=== PATIENT | female | born 1990 | race African-American/Black ===

== ENCOUNTER 2016-09-01 07:45 | Emergency (ER) | payer MEDICAID ==
[~2016-09-01] VITALS: Ht 160 cm; Wt 82.0 kg
[2016-09-01 07:47] VITALS: BP 134/74; PULSE 74; RESP 15; TEMP 98; O2SAT 100
[2016-09-01] MEDS ORDERED: IBUP800T23 PO (08:11)
[2016-09-01] MEDS ORDERED: CEPH-460 PO (08:11)
[2016-09-01] MEDS ORDERED: BACT800T5 PO (08:11)
--- NOTE | 2016-09-01 08:13 | PD ---
HPI Chief Complaint: Skin Problem Time Seen by Provider: 08:09 Travel History International Travel<30 days: No Contact w/Intl Traveler<30days: No Traveled to known affect area: No History of Present Illness HPI 26-year-old female presents to the emergency Department with complaint of "risens" under her right and left breast and to her sternum area. Right breast abscess started about a week ago and has already drained and is healing. The left breast abscess is draining purulent drainage. The abscess to the sternal area just started yesterday. Says she has been getting the abscess to these areas on and off for the past couple months. She has not taken any medications or tried any treatments to alleviate her symptoms. Denies fever, vomiting. Has no other medical complaints. Unknown tetanus status. No known allergies. No other modifying factors or associated signs and symptoms. PFSH Past Medical History Diminished Hearing: No Immunizations Current: Yes ?: Not LMP: 3 weeks ago : 1 Para: 1 : 1 Tubal Ligation: Yes Social History Alcohol Use: Yes Tobacco Use: Yes (5 cig/day) Substance Use: No Allergies-Medications (Allergen,Severity, Reaction): Coded Allergies: No Known Allergies (Verified , 02/09/16) Reported Meds & Prescriptions Reported Meds & Active Scripts Active Ibuprofen 800 Mg Tab 800 Mg PO Q6HR PRN Keflex (Cephalexin) 500 Mg Cap 500 Mg PO Q6H 10 Days Bactrim DS (Sulfamethoxazole-Trimethoprim) 800-160 Mg Tab 1 Tab PO BID 10 Days Review of Systems Except as stated in HPI: all other systems reviewed are Neg Physical Exam Narrative GENERAL: Well-nourished, well-developed female patient, in no acute distress; afebrile, nontoxic-appearing SKIN: There is an indurated area to the lower, medial fold of the left breast which measures about 2 cm in diameter. It is fluctuant and draining purulent drainage. There is non-fluctuant area to the medial fold of the right breast which measures about 1 cm in diameter and appears to be healing; without drainage. There is an indurated area to the skin of the mid sternum that is nonfluctuant and hard on palpation; with minimal tenderness and without erythema or surrounding zone of inflammation. There is a zone of inflammation noted to the lower. The left breast around the area of the abscess but no lymphangitis. HEAD: Atraumatic. Normocephalic. EYES: Pupils equal and round. No scleral icterus. No injection or drainage. ENT: Mucosa pink and moist. Airway patent. NECK: Trachea midline. CARDIOVASCULAR: Regular rate. RESPIRATORY: No accessory muscle use. GASTROINTESTINAL: Rounded. MUSCULOSKELETAL: No obvious deformities. No clubbing. No cyanosis. No edema. NEUROLOGICAL: Awake and alert. Oriented 3. No obvious cranial nerve deficits. Motor grossly within normal limits. Normal speech. PSYCHIATRIC: Appropriate mood and affect; insight and judgment normal. Data Data Last Documented VS Vital Signs Date Time Temp Pulse Resp B/P Pulse Ox O2 Delivery O2 Flow Rate FiO2 09/01/16 07:47 98.0 74 15 134/74 100 MDM Medical Decision Making Medical Screen Exam Complete: Yes Emergency Medical Condition: Yes Medical Record Reviewed: Yes Differential Diagnosis Abscesses, folliculitis, cellulitis Narrative Course 26-year-old female with multiple abscesses. One to the under fold of the right breast that has already drained and is nonfluctuant and without erythema or edema. One to the under fold of the left breast that is draining purulent drainage and rhythm area of erythema; without lymphangitis. One to the skin of the mid sternum that is nonfluctuant and without erythema, pointing, drainage, lymphangitis. Patient is afebrile and nontoxic-appearing. She denies fever, vomiting. Wound culture pending. Tetanus updated in the ER. Ibuprofen administered in the ER. Keflex, Bactrim, ibuprofen prescribed for home. Patient verbalizes understanding and agreement with treatment plan. Patient is medically cleared and stable for discharge. Discussed reasons to return to the emergency department. Instructed patient to follow up with primary care provider. Patient agrees with treatment plan. The patients vital signs are stable and the patient is stable for outpatient follow-up and treatment. Patient discharged home, stable and in no acute distress. Diagnosis Primary Impression: Abscess of multiple sites Referrals: [facility] Primary Care Physician Patient Instructions: Abscess (ED), Abscess Follow-up (ED), General Instructions Departure Forms: Tests/Procedures, Work Release Enter return to work date: Sep 02, 2016 Additional Instructions: Complete full course of antibiotics Warm compresses to the affected area Keep area clean and dry Ibuprofen or Tylenol as directed and as needed for pain and inflammation Follow-up with primary care provider Return to emergency department immediately with worsening of symptoms Med/Other Pt SpecificInfo: Prescription(s) given Scripts Ibuprofen 800 Mg [id number] Mg PO Q6HR PRN (PAIN) #30 TAB Ref 0 Prov:Zohra Villalpando 09/01/16 Cephalexin (Keflex)500 Mg [id number] Mg PO Q6H 10 Days Ref 0 Prov:Zohra Villalpando 09/01/16 Sulfamethoxazole-Trimethoprim (Bactrim DS)800-160 Mg Tab1 Tab PO BID 10 Days Ref 0 Prov:Zohra Villalpando 09/01/16 Disposition: 01 DISCHARGE HOME Condition: Stable Zohra Villalpando Sep 01, 2016 08:13
[2016-09-01] MEDS ORDERED: IBUPROFEN 800 MG TAB PO ONE (08:15)
[2016-09-01] MEDS ORDERED: TETANUS/DIPHTHERIA TOXOID ADULT 0.5 ML VIAL IM ONE (08:15)
== END 2016-09-01 08:20 | disposition home or self-care (01) ==
LOC: NEPD 07:45
DX: N61.1 Abscess of the breast and nipple (principal); L02.213 Cutaneous abscess of chest wall; F17.210 Nicotine dependence, cigarettes, uncomplicated; Z23 Encounter for immunization
CPT/HCPCS: 86403; 87070; 87077; 87186; 90714; 99284

== ENCOUNTER 2017-05-07 04:10 | Emergency (ER) | payer MEDICAID ==
[~2017-05-07] VITALS: Ht 157.5 cm; Wt 68.0 kg
[~2017-05-07 04:10] MED LIST: BACT800T5 PO
[2017-05-07 04:31] VITALS: BP 119/78; PULSE 106; RESP 16; TEMP 100.5; O2SAT 100
[2017-05-07] MEDS ORDERED: KETOROLAC TROMETHAMINE 30 MG/ML (IVP) VIAL IVP ONE (06:00)
[2017-05-07] MEDS ORDERED: ACETAMINOPHEN 325 MG TAB PO ONE (06:00)
[2017-05-07] MEDS ORDERED: SODIUM CHLORIDE 0.9% FLUSH 10 ML FLUSH IV FLUSH PRN (06:00)
[2017-05-07 06:28] VITALS: O2SAT 100
[2017-05-07 06:45] LABS: AUTOMATED NEUTROPHIL # 7.7 TH/MM3 (1.8-7.7); BASOPHIL # 0.1 TH/MM3 (0-0.2); BASOPHIL % 0.5 % (0.0-2.0); EOSINOPHIL # 0.1 TH/MM3 (0-0.4); HEMATOCRIT 32.5 % (35.0-46.0); HEMOGLOBIN 10.8 GM/DL (11.6-15.3); LYMPH % 21.5 % (9.0-44.0); LYMPHOCYTE # 2.3 TH/MM3 (1.0-4.8); MEAN CELL VOLUME 80.3 FL (80.0-100.0); MEAN CORPUSCULAR HEMOGLOBIN 26.8 PG (27.0-34.0); MEAN CORPUSCULAR HGB CONC 33.4 % (32.0-36.0); MEAN PLATELET VOLUME 8.1 FL (7.0-11.0); MONO % 5.3 % (0.0-8.0); MONOCYTE # 0.6 TH/MM3 (0-0.9); NEUT % 71.7 % (16.0-70.0); PLATELET COUNT 256 TH/MM3 (150-450); RED BLOOD COUNT 4.05 MIL/MM3 (4.00-5.30); RED CELL DISTRIBUTION WIDTH 16.9 % (11.6-17.2); WHITE BLOOD COUNT 10.8 TH/MM3 (4.0-11.0)
[2017-05-07 06:57] LABS: ALBUMIN 3.3 GM/DL (3.4-5.0); AST (GOT) 16 U/L (15-37); BICARBONATE 25.3 MEQ/L (21.0-32.0); BLOOD UREA NITROGEN 8 MG/DL (7-18); CALCIUM 8.1 MG/DL (8.5-10.1); CHLORIDE 106 MEQ/L (98-107); CREATININE 0.75 MG/DL (0.50-1.00); GLOMERULAR FILTRATION RATE 111 ML/MIN (>89); GLUCOSE,RANDOM 89 MG/DL (74-106); SODIUM (NA) 137 MEQ/L (136-145)
[2017-05-07 07:00] LABS: ALKALINE PHOSPHATASE 75 U/L (45-117); ALT (GPT) 15 U/L (10-53); TOTAL BILIRUBIN ADULT 0.4 MG/DL (0.2-1.0); TOTAL PROTEIN 7.4 GM/DL (6.4-8.2)
[2017-05-07] MEDS ORDERED: IOHEXOL 350 MG/ML 10 ML VIAL (for RAD DIAG) IVCONTRAST ONE (07:29)
--- NOTE | 2017-05-07 07:37 | PD ---
HPI Chief Complaint: Abdominal Pain Time Seen by Provider: 05:56 Travel History International Travel<30 days: No Contact w/Intl Traveler<30days: No Traveled to known affect area: No History of Present Illness HPI 27-year-old female presents to the emergency department by private transportation for evaluation of left lower quadrant abdominal pain with nausea and vomiting. Patient states last bowel movement was earlier in the day. Patient denies constipation but states she feels as if she is constipated. The dysuria frequency or urgency. Patient has had subjective fever and chills. Patient denies she is currently menstruating and status post tubal ligation. Patient denies other concerns or complaints. Patient denies any respiratory illness symptoms. The patient rates her pain 10/10 in intensity. PFSH Past Medical History Narrative Medical Tubal ligation; tobacco use alcohol use; nursing notes reviewed Diminished Hearing: No Immunizations Current: Yes Tetanus Vaccination: < 5 Years Influenza Vaccination: Yes ?: Not LMP: 05/06/17 : 3 Para: 3 : 1 Tubal Ligation: Yes Social History Alcohol Use: Yes Tobacco Use: Yes (5 cig/day) Substance Use: No Allergies-Medications (Allergen,Severity, Reaction): Coded Allergies: No Known Allergies (Verified Adverse Reaction, Unknown, 05/07/17) Reported Meds & Prescriptions Reported Meds & Active Scripts Active No Active Prescriptions or Reported Medications Review of Systems Except as stated in HPI: all other systems reviewed are Neg General / Constitutional: Positive: Fever, Chills HENT: No: Congestion Cardiovascular: No: Chest Pain or Discomfort Respiratory: No: Shortness of Breath Gastrointestinal: Positive: Nausea, Vomiting, Abdominal Pain (Left lower quadrant) Genitourinary: No: Dysuria Musculoskeletal: No: Myalgias, Arthralgias Skin: No Rash Neurologic: No: Weakness Psychiatric: No: Anxiety Hematologic/Lymphatic: No: Lymph Node Enlargement Physical Exam Narrative GENERAL: Well-developed well-nourished female no acute distress or respiratory distress SKIN: Warm and dry. HEAD: Normocephalic. EYES: No scleral icterus. No injection or drainage. NECK: Supple, trachea midline. No JVD or lymphadenopathy. CARDIOVASCULAR: Regular rate and rhythm without murmurs, gallops, or rubs. RESPIRATORY: Breath sounds equal bilaterally. No accessory muscle use. GASTROINTESTINAL: Abdomen soft, LLQ tenderness, nondistended. MUSCULOSKELETAL: No cyanosis, or edema. BACK: Nontender without obvious deformity. No CVA tenderness. Data Data Last Documented VS Vital Signs Date Time Temp Pulse Resp B/P (MAP) Pulse Ox O2 Delivery O2 Flow Rate FiO2 05/07/17 06:28 100 Room Air 05/07/17 05:25 18 05/07/17 04:31 100.5 106 119/78 (92) Orders Orders Complete Blood Count With Diff (05/07/17 05:56) Comprehensive Metabolic Panel (05/07/17 05:56) Lipase (05/07/17 05:56) Urinalysis - C+S If Indicated (05/07/17 05:56) Ct Abd/Pel W Iv Contrast(Rout) (05/07/17 05:56) Iv Access Insert/Monitor (05/07/17 05:56) Ecg Monitoring (05/07/17 05:56) Oximetry (05/07/17 05:56) Sodium Chloride 0.9% Flush (Ns Flush) (05/07/17 06:00) Ketorolac Inj (Toradol Inj) (05/07/17 06:00) Ed Urine Pregnancytest Poc (05/07/17 05:56) Acetaminophen (Tylenol) (05/07/17 06:00) Iohexol 350 Inj (Omnipaque 350 Inj) (05/07/17 07:29) Labs Laboratory Tests Test 05/07/17 06:13 05/07/17 06:23 White Blood Count 10.8 TH/MM3 Red Blood Count 4.05 MIL/MM3 Hemoglobin 10.8 GM/DL Hematocrit 32.5 % Mean Corpuscular Volume 80.3 FL Mean Corpuscular Hemoglobin 26.8 PG Mean Corpuscular Hemoglobin Concent 33.4 % Red Cell Distribution Width 16.9 % Platelet Count 256 TH/MM3 Mean Platelet Volume 8.1 FL Neutrophils (%) (Auto) 71.7 % Lymphocytes (%) (Auto) 21.5 % Monocytes (%) (Auto) 5.3 % Eosinophils (%) (Auto) 1.0 % Basophils (%) (Auto) 0.5 % Neutrophils # (Auto) 7.7 TH/MM3 Lymphocytes # (Auto) 2.3 TH/MM3 Monocytes # (Auto) 0.6 TH/MM3 Eosinophils # (Auto) 0.1 TH/MM3 Basophils # (Auto) 0.1 TH/MM3 CBC Comment DIFF FINAL Differential Comment Blood Urea Nitrogen 8 MG/DL Creatinine 0.75 MG/DL Random Glucose 89 MG/DL Total Protein 7.4 GM/DL Albumin 3.3 GM/DL Calcium Level 8.1 MG/DL Alkaline Phosphatase 75 U/L Aspartate Amino Transf (AST/SGOT) 16 U/L Alanine Aminotransferase (ALT/SGPT) 15 U/L Total Bilirubin 0.4 MG/DL Sodium Level 137 MEQ/L Potassium Level 3.8 MEQ/L Chloride Level 106 MEQ/L Carbon Dioxide Level 25.3 MEQ/L Anion Gap 6 MEQ/L Estimat Glomerular Filtration Rate 111 ML/MIN Lipase 64 U/L MDM Medical Decision Making Medical Screen Exam Complete: Yes Emergency Medical Condition: Yes Medical Record Reviewed: Yes Interpretation(s) CBC & BMP Diagram 05/07/17 06:13 05/07/17 06:23 Total Protein 7.4, Albumin 3.3 L, Calcium Level 8.1 L, Alkaline Phosphatase 75, Aspartate Amino Transf (AST/SGOT) 16, Alanine Aminotransferase (ALT/SGPT) 15, Total Bilirubin 0.4 Vital Signs Date Time Temp Pulse Resp B/P (MAP) Pulse Ox O2 Delivery O2 Flow Rate FiO2 05/07/17 06:28 100 Room Air 05/07/17 05:25 18 05/07/17 04:31 100.5 106 16 119/78 (92) 100 Vital Signs Date Time Temp Pulse Resp B/P (MAP) Pulse Ox O2 Delivery O2 Flow Rate FiO2 05/07/17 06:28 100 Room Air 05/07/17 05:25 18 05/07/17 04:31 100.5 106 16 119/78 (92) 100 Differential Diagnosis Left lower quadrant abdominal pain, ectopic , atypical appendicitis, diverticulitis, colitis, UTI, pyelonephritis, renal colic with obstructive uropathy, PID Narrative Course IV access obtained specimens collected and sent for resulting CT abdomen pelvis ordered [id number] hCG is negative Patient's care signed over oncoming physician Dr. Drake Scripts No Active Prescriptions or Reported Meds Gabriela Vann MD May 07, 2017 07:37
--- NOTE | 2017-05-07 07:40 | PD ---
Physical Exam Narrative Patient was seen by ED physician and signed out to me. Data Data Last Documented VS Vital Signs Date Time Temp Pulse Resp B/P (MAP) Pulse Ox O2 Delivery O2 Flow Rate FiO2 05/07/17 06:28 100 Room Air 05/07/17 05:25 18 05/07/17 04:31 100.5 106 119/78 (92) Orders Orders Complete Blood Count With Diff (05/07/17 05:56) Comprehensive Metabolic Panel (05/07/17 05:56) Lipase (05/07/17 05:56) Urinalysis - C+S If Indicated (05/07/17 05:56) Ct Abd/Pel W Iv Contrast(Rout) (05/07/17 05:56) Iv Access Insert/Monitor (05/07/17 05:56) Ecg Monitoring (05/07/17 05:56) Oximetry (05/07/17 05:56) Sodium Chloride 0.9% Flush (Ns Flush) (05/07/17 06:00) Ketorolac Inj (Toradol Inj) (05/07/17 06:00) Ed Urine Pregnancytest Poc (05/07/17 05:56) Acetaminophen (Tylenol) (05/07/17 06:00) Iohexol 350 Inj (Omnipaque 350 Inj) (05/07/17 07:29) Labs Laboratory Tests Test 05/07/17 06:13 05/07/17 06:23 White Blood Count 10.8 TH/MM3 Red Blood Count 4.05 MIL/MM3 Hemoglobin 10.8 GM/DL Hematocrit 32.5 % Mean Corpuscular Volume 80.3 FL Mean Corpuscular Hemoglobin 26.8 PG Mean Corpuscular Hemoglobin Concent 33.4 % Red Cell Distribution Width 16.9 % Platelet Count 256 TH/MM3 Mean Platelet Volume 8.1 FL Neutrophils (%) (Auto) 71.7 % Lymphocytes (%) (Auto) 21.5 % Monocytes (%) (Auto) 5.3 % Eosinophils (%) (Auto) 1.0 % Basophils (%) (Auto) 0.5 % Neutrophils # (Auto) 7.7 TH/MM3 Lymphocytes # (Auto) 2.3 TH/MM3 Monocytes # (Auto) 0.6 TH/MM3 Eosinophils # (Auto) 0.1 TH/MM3 Basophils # (Auto) 0.1 TH/MM3 CBC Comment DIFF FINAL Differential Comment Blood Urea Nitrogen 8 MG/DL Creatinine 0.75 MG/DL Random Glucose 89 MG/DL Total Protein 7.4 GM/DL Albumin 3.3 GM/DL Calcium Level 8.1 MG/DL Alkaline Phosphatase 75 U/L Aspartate Amino Transf (AST/SGOT) 16 U/L Alanine Aminotransferase (ALT/SGPT) 15 U/L Total Bilirubin 0.4 MG/DL Sodium Level 137 MEQ/L Potassium Level 3.8 MEQ/L Chloride Level 106 MEQ/L Carbon Dioxide Level 25.3 MEQ/L Anion Gap 6 MEQ/L Estimat Glomerular Filtration Rate 111 ML/MIN Lipase 64 U/L MDM Supervised Visit with TOMMY: No Interpretation(s) 7:39 AM. CBC with WBC 10.8. Hemoglobin 10.8 hematocrit 32.5. 71 neutrophil. CMP within normal limits. Narrative Course 27-year-old female with left lower quadrant abdominal pain. Patient was seen by ED physician and signed out to me. Diagnosis Primary Impression: Abdominal pain Qualified Codes: R10.32 - Left lower quadrant pain Additional Impression: Gastroenteritis Patient Instructions: General Instructions Additional Instruction: Bentyl as needed for abdominal pain. Clear fluids today and advance diet as tolerated. Follow-up with personal physician. Return to persistent abdominal pain, fever, vomiting or worse. Med/Other Pt SpecificInfo: Prescription(s) given Scripts Dicyclomine (Bentyl) 10 Mg Cap 10 MG PO TID Y for Bowel Management, #15 CAP 0 Refills Prov: Cole Drake MD 05/07/17 Disposition: 01 DISCHARGE HOME Condition: Stable Cole Drake MD May 07, 2017 07:40
--- NOTE | 2017-05-07 07:47 | RADRPT ---
EXAM DATE/TIME: 05/07/2017 07:24 [facility] COMPARISON: No previous studies available for comparison. INDICATIONS : Abdominal pain and vomiting IV CONTRAST: 95 cc Omnipaque 350 (iohexol) IV ORAL CONTRAST: No oral contrast ingested. RADIATION DOSE: 8.01 CTDIvol (mGy) MEDICAL HISTORY : None SURGICAL HISTORY : Tubal ligation. ENCOUNTER: Initial ACUITY: 1 day PAIN SCALE: 5/10 LOCATION: diffuse abdomen TECHNIQUE: Volumetric scanning of the abdomen and pelvis was performed. Using automated exposure control and ad justment of the mA and/or kV according to patient size, radiation dose was kept as low as reasonably achievable to obtain optimal diagnostic quality images. DICOM format image data is available electro nically for review and comparison. FINDINGS: LOWER LUNGS: The visualized lower lungs are clear. LIVER: Homogeneous density without lesion. There is no dilation of the biliary tree. No calcified gallston es. The gallbladder is unremarkable in appearance. SPLEEN: Normal size without lesion. PANCREAS: Within normal limits. KIDNEYS: Normal in size and shape. There is no mass, stone or hydronephrosis. ADRENAL GLANDS: Within normal limits. VASCULAR: There is no aortic aneurysm. BOWEL/MESENTERY: No oral contrast was given limiting the sensitivity of the exam. There is a normal appendix. The stom ach and colon appear unremarkable. There are several loops of nondilated air-containing small bowel s everal small air-fluid levels. There is no free intraperitoneal air. There are multiple small punctat e areas of calcification are located in the distal small bowel. ABDOMINAL WALL: Within normal limits. RETROPERITONEUM: There is no lymphadenopathy. BLADDER: No wall thickening or mass. REPRODUCTIVE: The uterus and adnexa appear unremarkable. There is free fluid in the cul-de-sac which could be physi ologic for a patient this age.. INGUINAL: There is no lymphadenopathy or hernia. MUSCULOSKELETAL: Within normal limits for patient age. CONCLUSION: 1. Nonspecific, nonobstructive bowel gas pattern which may represent a mild ileus and/or gastroenteri tis. No oral contrast was given limiting sensitivity. 2. There is normal appendix. 3. Unremarkable gallbladder. 4. Multiple punctate areas of calcification are located in the distal small bowel. This likely repres ents ingested food material. 5. Free fluid in the cul-de-sac which can be physiologic in a female patient of this age. Troy Pagan MD on May 07, 2017 at 7:42 Board Certified Radiologist. This report was verified electronically.
[2017-05-07] MEDS ORDERED: DICY10 PO (08:01)
[2017-05-07 08:05] VITALS: BP 124/85; PULSE 85; RESP 16; TEMP 98.5; O2SAT 98
[2017-05-07 08:56] LABS: BACTERIA, URINE RARE /hpf; BILIRUBIN, URINE NEG (NEG); BLOOD, URINE MOD (NEG); GLUCOSE,URINE NEG (NEG); KETONE, URINE NEG (NEG); NITRITE,URINE NEG (NEG); PH, URINE 5.5 (5.0-8.5); SQUAMOUS EPITHELIAL CELL URINE 1 /hpf (0-5); URINE COLOR YELLOW (YELLW/STRAW); URINE LEUKOCYTE ESTERASE NEG (NEG)
== END 2017-05-07 09:07 | disposition home or self-care (01) ==
LOC: NEPC 04:10
DX: K52.9 Noninfective gastroenteritis and colitis, unspecified (principal); F17.210 Nicotine dependence, cigarettes, uncomplicated
CPT/HCPCS: 74177; 80053; 81001; 83690; 84703; 85025; 96374; 99284; J1885; Q9967

== ENCOUNTER 2017-07-20 17:25 | Emergency (ER) | payer MEDICAID ==
[~2017-07-20 17:25] MED LIST changes: -BACT800T5 PO; +DICY10 PO
[2017-07-20 17:37] VITALS: BP 130/84; PULSE 100; RESP 18; TEMP 99.1; O2SAT 100
--- NOTE | 2017-07-20 17:56 | PD ---
HPI Chief Complaint: Cold / Flu Symptoms Time Seen by Provider: 17:55 Travel History International Travel<30 days: No Contact w/Intl Traveler<30days: No Traveled to known affect area: No History of Present Illness HPI 27-year-old female came to the emergency room with history of nausea and vomiting since this morning. Patient says she woke up and was nauseous. Since then she has vomited 3 times. She also felt fever and chills and took Tylenol about 5 hours ago. Patient says that her last vomit was couple hours ago but she continues to feel nauseous. Patient's bedside urine is negative. She is currently having her menstrual cycle she said. There is a positive sick contact history. She was in contact with her 1-year-old nephew who had the same symptoms couple days ago. No history of dysuria. She is otherwise a healthy person. Vital signs were suggestive of a temperature of 99.5 in triage. Otherwise relatively normal. PFSH Past Medical History Narrative Medical List of her past medical, surgical, social and family history is reviewed from the nursing note Diminished Hearing: No Immunizations Current: Yes : 3 Para: 3 : 1 Tubal Ligation: Yes Social History Alcohol Use: Yes Tobacco Use: Yes (5 cig/day) Substance Use: No Allergies-Medications (Allergen,Severity, Reaction): Coded Allergies: No Known Allergies (Verified Adverse Reaction, Unknown, 07/20/17) Comments No known drug allergies. Reported Meds & Prescriptions Reported Meds & Active Scripts Active Bentyl (Dicyclomine HCl) 10 Mg Cap 10 Mg PO TID PRN Narrative Medication List of her home medications reviewed from the nursing note. Review of Systems Except as stated in HPI: all other systems reviewed are Neg General / Constitutional: Positive: Fever Gastrointestinal: Positive: Nausea, Vomiting Physical Exam Narrative GENERAL: Awake, alert, mild distress SKIN: Focused skin assessment warm/dry. HEAD: Atraumatic. Normocephalic. EYES: Pupils equal and round. No scleral icterus. No injection or drainage. ENT: No nasal bleeding or discharge. Mucous membranes pink and moist. NECK: Trachea midline. No JVD. CARDIOVASCULAR: Regular rate and rhythm. No murmur appreciated. RESPIRATORY: No accessory muscle use. Clear to auscultation. Breath sounds equal bilaterally. GASTROINTESTINAL: Abdomen soft, non-tender, nondistended. Hepatic and splenic margins not palpable. MUSCULOSKELETAL: No obvious deformities. No clubbing. No cyanosis. No edema. NEUROLOGICAL: Awake and alert. No obvious cranial nerve deficits. Motor grossly within normal limits. Normal speech. PSYCHIATRIC: Appropriate mood and affect; insight and judgment normal. Data Data Last Documented VS Vital Signs Date Time Temp Pulse Resp B/P (MAP) Pulse Ox O2 Delivery O2 Flow Rate FiO2 07/20/17 18:51 76 18 134/75 (94) 98 Room Air 07/20/17 17:37 99.1 Orders Orders Influenzae A/B Antigen (07/20/17 17:40) Ed Urine Pregnancytest Poc (07/20/17 17:40) Urinalysis - C+S If Indicated (07/20/17 18:13) Ondansetron Odt (Zofran Odt) (07/20/17 18:15) Urine Culture (07/20/17 18:15) Ed Discharge Order (07/20/17 19:07) Labs Laboratory Tests Test 07/20/17 18:15 Urine Color YELLOW Urine Turbidity HAZY Urine pH 6.0 Urine Specific [place] 1.026 Urine Protein TRACE mg/dL Urine Glucose (UA) NEG mg/dL Urine Ketones NEG mg/dL Urine Occult Blood MOD Urine Nitrite NEG Urine Bilirubin NEG Urine Urobilinogen 2.0 MG/DL Urine Leukocyte Esterase NEG Urine RBC /hpf Urine WBC 9 /hpf Urine Squamous Epithelial Cells 4 /hpf Urine Bacteria OCC /hpf Urine Mucus FEW /lpf Microscopic Urinalysis Comment CULTURE INDICATED MDM Medical Decision Making Medical Screen Exam Complete: Yes Emergency Medical Condition: Yes Medical Record Reviewed: Yes Differential Diagnosis Viral illness, UTI, influenza Narrative Course 7:11 PM influenza is negative. UA shows RBCs probably from her menstrual cycle. There are a few white blood cell but not enough to convince me to go ahead and treat her. I would rather wait for the urine culture. Patient was given p.o. Zofran and she is feeling better. I am comfortable discharging her home with prescription. Diagnosis Primary Impression: Viral illness Additional Impression: Nausea Additional Instructions: Take the medication as per the prescription direction. Drink lots of fluid to stay hydrated. Take Tylenol/Motrin/Advil/ibuprofen for fever as needed. Return to the ER if condition worsens or any other new concerns. Med/Other Pt SpecificInfo: Prescription(s) given Scripts Ondansetron Odt (Zofran Odt) 4 Mg Tab 4 MG SL Q6HR Y for Nausea/Vomiting, #10 TAB 0 Refills Prov: Charlie Dodge MD 07/20/17 Disposition: 01 DISCHARGE HOME Condition: Stable Charlie Dodge MD July 20, 2017 17:56
[2017-07-20] MEDS ORDERED: ONDANSETRON ODT 4 MG TAB PO ONE (18:15)
[2017-07-20 18:48] LABS: BACTERIA, URINE OCC /hpf; BILIRUBIN, URINE NEG (NEG); BLOOD, URINE MOD (NEG); GLUCOSE,URINE NEG (NEG); KETONE, URINE NEG (NEG); MUCUS URINE FEW /lpf (OCC); NITRITE,URINE NEG (NEG); SQUAMOUS EPITHELIAL CELL URINE 4 /hpf (0-5); URINE COLOR YELLOW (YELLW/STRAW); URINE LEUKOCYTE ESTERASE NEG (NEG)
[2017-07-20 18:51] VITALS: BP 134/75; PULSE 76; RESP 18; O2SAT 98
[2017-07-20] MEDS ORDERED: ZOFR4TAB3 SL (19:11)
== END 2017-07-20 19:41 | disposition home or self-care (01) ==
LOC: NEPD 17:25
DX: B34.9 Viral infection, unspecified (principal); R11.2 Nausea with vomiting, unspecified; R82.99 Other abnormal findings in urine; F17.210 Nicotine dependence, cigarettes, uncomplicated; Z79.899 Other long term (current) drug therapy
CPT/HCPCS: 81001; 84703; 87086; 87804; 99283